=== PATIENT | female | born 1980 | race Caucasian/White ===

== ENCOUNTER 2016-07-13 04:29 | Inpatient (IN) | payer MEDICAID ==
[~2016-07-13] VITALS: Ht 165.1 cm; Wt 66.2 kg
[2016-07-13] VITALS (18 sets, daily range): BP systolic 104–131; BP diastolic 69–86; PULSE 50–88; RESP 14–20; TEMP 98.3; Ht 165.1 cm; Wt 66.2 kg
[~2016-07-13 04:29] MED LIST: CIPR500T4 PO; HYDR-762 PO; ONDA4TAB35 PO
[2016-07-13] MEDS ORDERED: morphine 4 MG/ML VIAL IV STA (06:14)
[2016-07-13] MEDS ORDERED: ONDANSETRON 4 MG INJ IV STA (06:14)
[2016-07-13] MEDS ORDERED: SOD CHLORIDE 0.9% 1,000 ML IV STA (06:14)
--- NOTE | 2016-07-13 06:36 | ERD ---
ER Documentation Chief Complaint Date/Time DATE: 07/13/16 TIME: 06:34 Chief Complaint GENERALIZED ABD PAIN SINCE LATE NIGHT WITH N/V (3X) HPI This is a 36-year-old female that presents to the ER with generalized abdominal pain that started last night. Patient has had nausea and 3 episodes of nonbilious nonbloody vomiting. Patient states that she tried Advil and tea at home however pain has gotten worse. Patient describes pain as a stabbing sensation throughout her entire abdomen, it has been constant. Nothing has made it better. Patient denies any diarrhea. She denies any fever or chills. She denies any urinary frequency or dysuria. She denies any chest pain or shortness of breath. ROS 12 point review of systems was done, all negative except per HPI. Medications Home Meds Active Scripts Ondansetron Hcl* (Zofran* ODT) 4 mg -ODT Tab.disper, 4 MG PO Q6 Y for NAUSEA AND /OR VOMITING, #10 TAB Prov:AUSTIN ANDERS. 02/15/15 Hydrocodone Bit-Acetaminophen* ([place]*) 10-325 Mg Tablet, 1 TAB PO Q6 Y for PAIN , #7 TAB Prov:AUSTIN ANDERS. 02/15/15 Ciprofloxacin Hcl* (Ciprofloxacin Hcl*) 500 Mg Tablet, 500 MG PO BID for 7 Days , TAB Prov:AUSTIN ANDERS. 02/15/15 Allergies Allergies: Coded Allergies: No Known Drug Allergy (Verified Allergy, Unknown, 02/15/15) PMhx/Soc History of Surgery: No Anesthesia Reaction: No Hx Neurological Disorder: No Hx Respiratory Disorders: No Hx Cardiac Disorders: No Hx Psychiatric Problems: Yes (ANXIETY) Hx Miscellaneous Medical Probl: No Hx Alcohol Use: No Hx Substance Use: No Hx Tobacco Use: No Smoking Status: Never smoker Physical Exam Vitals Vital Signs Date Time Temp Pulse Resp B/P Pulse Ox O2 Delivery O2 Flow Rate FiO2 07/13/16 04:33 97.6 62 18 116/76 100 Physical Exam GENERAL: The patient is well developed and appropriate for usual state of health , in no apparent distress. HEENT: Atraumatic. CHEST: Clear to auscultation bilaterally. There are no rales, wheezes or rhonchi. HEART: Regular rate and rhythm. No murmurs, clicks, rubs or gallops. ABDOMEN: Soft and nondistended, patient is tender to palpation throughout entire abdome. good bowel sounds. No rebound or guarding. No gross peritonitis. No gross organomegaly or masses. No Ritter sign or McBurney point tenderness. BACK: No midline or flank tenderness. NEURO: Alert and oriented. SKIN: The skin is warm and dry. Result Diagram: 07/13/16 0640 07/13/16 0640 Results 24 hrs Laboratory Tests Test 07/13/16 06:40 White Blood Count 10.110^3/ul Red Blood Count 3.9210^6/ul Hemoglobin 12.0g/dl Hematocrit 35.7% Mean Corpuscular Volume 91.1fl Mean Corpuscular Hemoglobin 30.6pg Mean Corpuscular Hemoglobin Concent 33.6g/dl Red Cell Distribution Width 13.3% Platelet Count 86253^3/UL Mean Platelet Volume 10.8fl Neutrophils % 81.9% Lymphocytes % 11.0% Monocytes % 6.3% Eosinophils % 0.2% Basophils % 0.2% Nucleated Red Blood Cells % 0.0/100WBC Neutrophils # 8.310^3/ul Lymphocytes # 1.110^3/ul Monocytes # 0.610^3/ul Eosinophils # 0.010^3/ul Basophils # 0.010^3/ul Nucleated Red Blood Cells # 0.010^3/ul Sodium Level 137mmol/L Potassium Level 3.9mmol/L Chloride Level 105mmol/L Carbon Dioxide Level 20mmol/L Anion Gap 16 Blood Urea Nitrogen 11mg/dl Creatinine 0.49mg/dl Glucose Level 115mg/dl Calcium Level 9.6mg/dl Total Bilirubin 0.6mg/dl Direct Bilirubin 0.00mg/dl Indirect Bilirubin 0.6mg/dl Aspartate Amino Transf (AST/SGOT) 26IU/L Alanine Aminotransferase (ALT/SGPT) 35IU/L Alkaline Phosphatase 64IU/L Total Protein 8.4g/dl Albumin 4.8g/dl Globulin 3.60g/dl Albumin/Globulin Ratio 1.33 Lipase 67U/L Current Medications Medications (Trade) Dose Ordered Sig/Cheo Route PRN Reason Start Time Stop Time Status Last Admin Dose Admin Sodium Chloride (NS) 1,000 ml @ 1,000 mls/hr Q1H STAT IV 07/13/16 06:14 07/13/16 07:13 DC 07/13/16 06:36 Morphine Sulfate (morphine) 4 mg ONCE STAT IV 07/13/16 06:14 07/13/16 06:16 DC 07/13/16 06:36 Ondansetron HCl (Zofran Inj) 4 mg ONCE STAT IV 07/13/16 06:14 07/13/16 06:16 DC 07/13/16 06:36 Departure Diagnosis: Primary Impression: Appendicitis Condition: Stable IVETTE GRUBBS July 13, 2016 06:36
[2016-07-13 07:18] LABS: ADD SCAN DIFF NO
[2016-07-13 07:30] LABS: BASOPHILS % 0.2 % (0.0-2.0); EOSINOPHILS % 0.2 % (0.0-7.0); HEMATOCRIT 35.7 % (37.0-47.0); LYMPHOCYTES # 1.1 10^3/ul (0.8-2.9); MEAN CORPUSCULAR HEMOGLOBIN 30.6 pg (29.0-33.0); MEAN CORPUSCULAR HGB CONC 33.6 g/dl (32.0-37.0); MEAN CORPUSCULAR VOLUME 91.1 fl (82.0-101.0); MEAN PLATELET VOLUME 10.8 fl (7.4-10.4); MONOCYTE # 0.6 10^3/ul (0.3-0.9); MONOCYTES % 6.3 % (0.0-11.0); NEUTROPHIL # 8.3 10^3/ul (1.6-7.5); NEUTROPHILS % 81.9 % (39.0-77.0); PLATELET COUNT 215 10^3/UL (140-415); RED BLOOD COUNT 3.92 10^6/ul (4.20-5.40); RED CELL DISTRIBUTION WIDTH 13.3 % (11.5-14.5); WHITE BLOOD COUNT 10.1 10^3/ul (4.8-10.8)
--- NOTE | 2016-07-13 07:48 | RADRPT ---
PROCEDURE: CT Abdomen and pelvis without contrast. CLINICAL INDICATION: Abdominal pain/right flank pain TECHNIQUE: CT scan of the abdomen and pelvis with contrast was performed on a multidetector high-r esolution CT scan. . Coronal and sagittal reformatted images were obtained from the axial source i mages. Standard CT scan of the abdomen pelvis without contrast protocols were performed. The total exam CTDI equals 9.31 mGy and the total exam DLP equals 503.32 mGy-cm. One or more of the following dose reduction techniques were used: - Automated exposure control. - Adjustment of the mA and/or kV according to patient size. Use of iterative reconstruction technique. COMPARISON: None FINDINGS: The kidneys are normal in size without calcified renal calculi hydronephrosis or intra masses bilate rally. Urinary bladder is contracted but otherwise unremarkable. The ureters are unremarkable. The uterus is anteverted anteflexed but otherwise unremarkable. There are no adnexal masses. The appendix is dilated with a maximal diameter of 1.1 cm with a mildly thickened wall. There is mi nimal adjacent induration but no emy fluid, abscesses or free air. This finding is consistent with early acute appendicitis. No evidence of abdominal or pelvic lymphadenopathy. The stomach, small bowel and large bowel are un remarkable. The gallbladder is unremarkable and there is no evidence of biliary ductal dilation. The liver spleen pancreas and adrenal glands are unremarkable. The aorta is unremarkable. Lung bases are unremarkable. The osseous structures are unremarkable. Lower thoracic abdominal pelvic shultz are unremarkable. IMPRESSION: 1. Dilated appendix with a maximal diameter of 1.1 cm with a mildly thickened wall and minimal lisha cent induration consistent with early acute appendicitis. No abscess or free air. 2. No evidence of urinary calcified calculi or obstructive uropathy. RPTAT:AAJJ Physician Devante Date Time Electronically viewed and signed by Physician Devante on 07/13/2016 07:48 BM/
[2016-07-13 07:50] LABS: ALBUMIN 4.8 g/dl (3.3-4.9); ALBUMIN/GLOBULIN RATIO 1.33; BILIRUBIN,INDIRECT 0.6 mg/dl (0-1.1); BILIRUBIN,TOTAL 0.6 mg/dl (0.2-1.3); CALCIUM 9.6 mg/dl (8.4-10.2); CREATININE 0.49 mg/dl (0.44-1.00); POTASSIUM 3.9 mmol/L (3.5-5.1); TOTAL PROTEIN 8.4 g/dl (6.1-8.1)
[2016-07-13] MEDS ORDERED: D5W-0.45 NACL + KCL 20 MEQ 1,000 ML IV STA (08:27)
[2016-07-13] MEDS ORDERED: PIPER-TAZO 3.375 GM IV (PMX) 100 ML IVPB STA (08:27)
--- NOTE | 2016-07-13 08:27 | ERA ---
ER Documentation Chief Complaint Date/Time DATE: 07/13/16 TIME: 08:19 Chief Complaint GENERALIZED ABD PAIN SINCE LATE NIGHT WITH N/V (3X) HPI 36-year-old female with no significant previous medical history ambulatory to the ED complaining of acute onset of generalized, crampy, moderate to severe, generalized abdominal pain which is localized to the right lower quadrant. Nausea with 3 episodes of nonbloody, nonbilious emesis but no diarrhea or constipation. Denies dysuria, polyuria, hematuria or flank pain. No vaginal discharge or bleeding. Denies chest pain or palpitations. No shortness of breath or cough. No URI symptoms or body aches. No relieving or exacerbating factors. No fevers or chills. ROS All systems reviewed and are negative except as per history of present illness. Medications Home Meds Discontinued Scripts Ondansetron Hcl* (Zofran* ODT) 4 mg -ODT Tab.disper, 4 MG PO Q6 Y for NAUSEA AND /OR VOMITING, #10 TAB Prov:AUSTIN ANDERS. 02/15/15 Hydrocodone Bit-Acetaminophen* ([place]*) 10-325 Mg Tablet, 1 TAB PO Q6 Y for PAIN , #7 TAB Prov:AUSTIN ANDERS. 02/15/15 Ciprofloxacin Hcl* (Ciprofloxacin Hcl*) 500 Mg Tablet, 500 MG PO BID for 7 Days , TAB Prov:AUSTIN ANDERS. 02/15/15 Allergies Allergies: Coded Allergies: No Known Drug Allergy (Verified Allergy, Unknown, 07/13/16) PMhx/Soc Reviewed in chart. As per HPI. History of Surgery: Yes (Tubal ligation) Anesthesia Reaction: No Hx Neurological Disorder: No Hx Respiratory Disorders: No Hx Cardiac Disorders: No Hx Psychiatric Problems: Yes (ANXIETY) Hx Miscellaneous Medical Probl: No Hx Alcohol Use: No Hx Substance Use: No Hx Tobacco Use: No Smoking Status: Never smoker FmHx Sister: Heart disease. No family history of cancer or stroke Physical Exam Vitals Vital Signs Date Time Temp Pulse Resp B/P Pulse Ox O2 Delivery O2 Flow Rate FiO2 07/13/16 04:33 97.6 62 18 116/76 100 Physical Exam Const: Alert, moderate distress due to pain. Head: Atraumatic Eyes: Normal Conjunctiva ENT: Normal External Ears, Nose and Mouth. Neck: Full range of motion. Nontender. Resp: Clear to auscultation bilaterally Cardio: Regular rate and rhythm, no murmurs Abd: Soft, nondistended. Right lower quadrant tenderness but no rebound or guarding. Normal bowel sounds. Skin: No petechiae or rashes Back: No midline or flank tenderness Ext: No cyanosis, or edema Neur: Awake and alert. No focal deficit. Psych: Normal Mood and Affect Result Diagram: 07/13/16 0640 07/13/16 0640 Results 24 hrs Laboratory Tests Test 07/13/16 06:40 White Blood Count 10.110^3/ul Red Blood Count 3.9210^6/ul Hemoglobin 12.0g/dl Hematocrit 35.7% Mean Corpuscular Volume 91.1fl Mean Corpuscular Hemoglobin 30.6pg Mean Corpuscular Hemoglobin Concent 33.6g/dl Red Cell Distribution Width 13.3% Platelet Count 78254^3/UL Mean Platelet Volume 10.8fl Neutrophils % 81.9% Lymphocytes % 11.0% Monocytes % 6.3% Eosinophils % 0.2% Basophils % 0.2% Nucleated Red Blood Cells % 0.0/100WBC Neutrophils # 8.310^3/ul Lymphocytes # 1.110^3/ul Monocytes # 0.610^3/ul Eosinophils # 0.010^3/ul Basophils # 0.010^3/ul Nucleated Red Blood Cells # 0.010^3/ul Sodium Level 137mmol/L Potassium Level 3.9mmol/L Chloride Level 105mmol/L Carbon Dioxide Level 20mmol/L Anion Gap 16 Blood Urea Nitrogen 11mg/dl Creatinine 0.49mg/dl Glucose Level 115mg/dl Calcium Level 9.6mg/dl Total Bilirubin 0.6mg/dl Direct Bilirubin 0.00mg/dl Indirect Bilirubin 0.6mg/dl Aspartate Amino Transf (AST/SGOT) 26IU/L Alanine Aminotransferase (ALT/SGPT) 35IU/L Alkaline Phosphatase 64IU/L Total Protein 8.4g/dl Albumin 4.8g/dl Globulin 3.60g/dl Albumin/Globulin Ratio 1.33 Lipase 67U/L Serum HCG, Qualitative NEGATIVE Current Medications Medications (Trade) Dose Ordered Sig/Cheo Route PRN Reason Start Time Stop Time Status Last Admin Dose Admin Sodium Chloride (NS) 1,000 ml @ 1,000 mls/hr Q1H STAT IV 07/13/16 06:14 07/13/16 07:13 DC 07/13/16 06:36 Morphine Sulfate (morphine) 4 mg ONCE STAT IV 07/13/16 06:14 07/13/16 06:16 DC 07/13/16 06:36 Ondansetron HCl 4 mg 4 mg ONCE STAT IV 07/13/16 06:14 07/13/16 06:16 DC 07/13/16 06:36 Potassium Chloride/Dextrose/ Sod Cl 1,000 ml @ 125 mls/hr Q8H STAT IV 07/13/16 08:27 07/13/16 16:26 DC 07/13/16 08:53 Piperacillin Sod/ Tazobactam Sod (Zosyn 3.375gm/ 100 ml (Pmx)) 100 ml @ 200 mls/hr ONCE STAT IVPB 07/13/16 08:27 07/13/16 19:47 DC 07/13/16 08:43 PROCEDURE: CT Abdomen and pelvis without contrast. CLINICAL INDICATION: Abdominal pain/right flank pain TECHNIQUE: CT scan of the abdomen and pelvis with contrast was performed on a multidetector high-resolution CT scan. . Coronal and sagittal reformatted images were obtained from the axial source images. Standard CT scan of the abdomen pelvis without contrast protocols were performed. The total exam CTDI equals 9.31 mGy and the total exam DLP equals 503.32 mGy- cm. One or more of the following dose reduction techniques were used: - Automated exposure control. - Adjustment of the mA and/or kV according to patient size. Use of iterative reconstruction technique. COMPARISON: None FINDINGS: The kidneys are normal in size without calcified renal calculi hydronephrosis or intra masses bilaterally. Urinary bladder is contracted but otherwise unremarkable. The ureters are unremarkable. The uterus is anteverted anteflexed but otherwise unremarkable. There are no adnexal masses. The appendix is dilated with a maximal diameter of 1.1 cm with a mildly thickened wall. There is minimal adjacent induration but no emy fluid, abscesses or free air. This finding is consistent with early acute appendicitis. No evidence of abdominal or pelvic lymphadenopathy. The stomach, small bowel and large bowel are unremarkable. The gallbladder is unremarkable and there is no evidence of biliary ductal dilation. The liver spleen pancreas and adrenal glands are unremarkable. The aorta is unremarkable. Lung bases are unremarkable. The osseous structures are unremarkable. Lower thoracic abdominal pelvic shultz are unremarkable. IMPRESSION: 1. Dilated appendix with a maximal diameter of 1.1 cm with a mildly thickened wall and minimal adjacent induration consistent with early acute appendicitis. No abscess or free air. 2. No evidence of urinary calcified calculi or obstructive uropathy. RPTAT:AAJJ Physician Devante Date Time Electronically viewed and signed by Physician Devante on 07/13/2016 07:48 BM/ Procedures/MDM DOCUMENTS REVIEWED: ED nurse, prior ED MEDICAL DECISION MAKIN-year-old female with no significant previous medical history ambulatory to the ED complaining of acute onset of generalized, crampy, moderate to severe, generalized abdominal pain which is localized to the right lower quadrant. Not . Exam and CT scan consistent with acute early appendicitis without perforation. Zosyn given. Patient will be admitted for urgent surgical consultation, further evaluation and management. Counseled patient regarding diagnosis, diagnostic results and plan for admission. CALLS/CONSULTS: Time: 08:25, ana lilia Wakefield consult. CALLS/CONSULTS: Time: 08:25, Dr Avalos PATIENT CARE TRANSITIONED: Time: 08:45, Dr. Avalos. Departure Diagnosis: Primary Impression: Acute appendicitis Qualified Code: K35.80 - Acute appendicitis, unspecified acute appendicitis type Condition: Serious TIMO IZAGUIRRE MD July 13, 2016 08:27
[2016-07-13] MEDS ORDERED: ONDANSETRON 4 MG INJ IV PRN ×4 (09:00→20:00)
[2016-07-13] MEDS ORDERED: morphine 2 MG INJ IV PRN (09:30)
[2016-07-13] MEDS ORDERED: NACL 0.9% 3 ML SYG IV SCH (09:30)
[2016-07-13] MEDS ORDERED: ACETAMINOPHEN 325 MG TAB PO PRN (09:30)
[2016-07-13] MEDS ORDERED: HYDROCODONE/APAP (5/325) TAB PO PRN (09:30)
--- NOTE | 2016-07-13 09:42 | CONS ---
Date/Time of Note Date/Time of Note DATE: 07/13/16 TIME: 09:42 Assessment/Plan Assessment/Plan Chief Complaint/Hosp Course 36-year-old female with acute appendicitis. This has been confirmed via CT scan. * Continue nothing by mouth * Broad-spectrum intravenous antibiotics * IV fluid hydration * Pain control Definitive treatment will consist of laparoscopic appendectomy; possible open. This has been explained to the patient along with all risks and benefits of the procedure. She fully understands and is agreeable to the treatment plan as outlined. Informed consent will be obtained and the patient will be scheduled for laparoscopic appendectomy; possible open Problems: Consultation Date/Type/Reason Admit Date/Time Date of Consultation: July 13, 2016 Type of Consultation: GENERAL SURGERY Reason for Consultation Acute appendicitis Hx of Present Illness The patient is an otherwise healthy 36-year-old female who presented to the emergency room complaining of a one-day history of abdominal pain. She describes the pain as being located in the periumbilical area and as well as the right lower quadrant. She reports 3 episodes of nonbilious emesis. She denies any fever but reports subjective chills. She denies any diarrhea or constipation. She states she had a similar episode of pain approximately 1 month ago that resolved on its own. On arrival to the emergency room CT scan of the abdomen and pelvis which was done showed a dilated and thickened appendix consistent with acute appendicitis. She is currently complaining of right lower quadrant abdominal pain. A 14 point review of systems was conducted and was negative except for that which is mentioned in HPI Past Medical History Medical History: no pertinent history Past Surgical History Past Surgical Hx: other (Tubal ligation) Family History Significant Family History: no pertinent family hx Social History Smoking Status: Never smoker Exam/Review of Systems Vital Signs Vitals Vital Signs Date Time Temp Pulse Resp B/P Pulse Ox O2 Delivery O2 Flow Rate FiO2 07/13/16 04:33 97.6 62 18 116/76 100 Exam GENERAL: Awake, alert, oriented x 3. No acute distress. SKIN: No jaundice. HEENT: PERRLA, EOMI, No Scleral Icterus NECK: Supple without JVD CARDIOVASCULAR: S1S2, regular rate and rhythm. No murmurs appreciated. RESPIRATORY: Clear to auscultation bilaterally. ABDOMEN: Soft, bowel sounds present, nondistended, right lower quadrant tenderness to palpation with localized rebound and positive Rovsing sign. There is a reducible umbilical hernia palpated. EXTREMITIES: Free range of motion x 4. No cyanosis, edema, or clubbing. NEUROLOGIC: Cranial nerves II-XII are intact. Sensation is intact grossly. Results Result Diagram: 07/13/16 0640 07/13/16 0640 Results 24 hrs Laboratory Tests Test 07/13/16 06:40 White Blood Count 10.1 Red Blood Count 3.92 L Hemoglobin 12.0 Hematocrit 35.7 L Mean Corpuscular Volume 91.1 Mean Corpuscular Hemoglobin 30.6 Mean Corpuscular Hemoglobin Concent 33.6 Red Cell Distribution Width 13.3 Platelet Count 215 Mean Platelet Volume 10.8 #H Neutrophils % 81.9 H Lymphocytes % 11.0 L Monocytes % 6.3 Eosinophils % 0.2 Basophils % 0.2 Nucleated Red Blood Cells % 0.0 Neutrophils # 8.3 H Lymphocytes # 1.1 Monocytes # 0.6 Eosinophils # 0.0 Basophils # 0.0 Nucleated Red Blood Cells # 0.0 Sodium Level 137 Potassium Level 3.9 Chloride Level 105 Carbon Dioxide Level 20 L Anion Gap 16 Blood Urea Nitrogen 11 Creatinine 0.49 Glucose Level 115 Calcium Level 9.6 Total Bilirubin 0.6 Direct Bilirubin 0.00 Indirect Bilirubin 0.6 Aspartate Amino Transf (AST/SGOT) 26 Alanine Aminotransferase (ALT/SGPT) 35 Alkaline Phosphatase 64 Total Protein 8.4 H Albumin 4.8 Globulin 3.60 H Albumin/Globulin Ratio 1.33 Lipase 67 Medications Medications Current Medications Ondansetron HCl (Zofran Inj) 4 mg Q6H PRN IV NAUSEA AND/OR VOMITING; Start 07/13 at 09:30; Status UNV Acetaminophen (Tylenol Tab) 650 mg Q6H PRN PO PAIN LEVEL 1-3 OR FEVER; Start at 09:30; Status UNV Acetaminophen/ Hydrocodone Bitart ([place] (5/325)) 1 tab Q6H PRN PO MODERATE PAIN LEVEL 4-6; Start 07/13/16 at 09:30; Status UNV Morphine Sulfate 2 mg 2 mg Q4H PRN IV SEVERE PAIN LEVEL 7-10; Start 07/13/16 at 09:30; Status UNV Dextrose/Sodium Chloride 1,000 ml @ 125 mls/hr Q8H IV ; Start 07/13/16 at 10:00 ; Status UNV Piperacillin Sod/ Tazobactam Sod (Zosyn 3.375gm/ 100 ml (Pmx)) 100 ml @ 200 mls /hr Q8 IVPB ; Start 07/13/16 at 14:00; Status UNV Procedures Procedures PROCEDURE: CT Abdomen and pelvis without contrast. CLINICAL INDICATION: Abdominal pain/right flank pain TECHNIQUE: CT scan of the abdomen and pelvis with contrast was performed on a multidetector high-resolution CT scan. . Coronal and sagittal reformatted images were obtained from the axial source images. Standard CT scan of the abdomen pelvis without contrast protocols were performed. The total exam CTDI equals 9.31 mGy and the total exam DLP equals 503.32 mGy- cm. One or more of the following dose reduction techniques were used: - Automated exposure control. - Adjustment of the mA and/or kV according to patient size. Use of iterative reconstruction technique. COMPARISON: None FINDINGS: The kidneys are normal in size without calcified renal calculi hydronephrosis or intra masses bilaterally. Urinary bladder is contracted but otherwise unremarkable. The ureters are unremarkable. The uterus is anteverted anteflexed but otherwise unremarkable. There are no adnexal masses. The appendix is dilated with a maximal diameter of 1.1 cm with a mildly thickened wall. There is minimal adjacent induration but no emy fluid, abscesses or free air. This finding is consistent with early acute appendicitis. No evidence of abdominal or pelvic lymphadenopathy. The stomach, small bowel and large bowel are unremarkable. The gallbladder is unremarkable and there is no evidence of biliary ductal dilation. The liver spleen pancreas and adrenal glands are unremarkable. The aorta is unremarkable. Lung bases are unremarkable. The osseous structures are unremarkable. Lower thoracic abdominal pelvic shultz are unremarkable. IMPRESSION: 1. Dilated appendix with a maximal diameter of 1.1 cm with a mildly thickened wall and minimal adjacent induration consistent with early acute appendicitis. No abscess or free air. 2. No evidence of urinary calcified calculi or obstructive uropathy. RPTAT:AAJJ Physician Devante Date Time Electronically viewed and signed by Physician Devante on 07/13/2016 07:48 BM/ CC: IVETTE GRUBBS MICHAEL A. MD July 13, 2016 09:42
--- NOTE | 2016-07-13 09:44 | HP ---
Date/Time of Note Date/Time of Note DATE: 07/13/16 TIME: 09:40 Assessment/Plan VTE Prophylaxis VTE Prophylaxis Intervention: SCD's Assessment/Plan Assessment/Plan 1. Acute abdominal pain. CT evidence of acute appendicitis. The patient will be kept n.p.o. The patient was started on IV fluids. She will be provided with adequate pain control. The patient was started on empiric antibiotics. A general surgery consult was already called by the ER physician. Will await general surgery evaluation. 2. Umbilical hernia. Reducible. CT showing no evidence of any bowel obstruction. Plan: The patient will be admitted to inpatient medical surgical floor. The patient will be kept n.p.o. except for medications. The patient will be started on DVT prophylaxis and gastrointestinal prophylaxis. The patient will remain a full code. Activities will be as tolerated. The rest of the patient's management will be based on the clinical course and the results of diagnostic studies. Based on the patient's clinical presentation, she most probably requires at least 1 midnight's stay for further management and evaluation of her clinical presentation. The case and management of this patient was fully discussed with Dr. Robbie ARGUETA/ROCÍO Admit Date/Time Admit Date/Time Hx of Present Illness Reason for admission: Abdominal pain. Consultants 1. Martinez Martínez MD, General Surgery. This is a 36-year-old female with no significant past medical history who came to the emergency room with chief complaint of acute onset of abdominal pain that was described as crampy and moderate to severe which was localized to the right lower quadrant. The patient also complained of 3 episodes of nonbloody, nonbilious vomitus. The patient denied any diarrhea or constipation. She denied any dysuria, polyuria, hematuria, or flank pain. Patient denied any chest pain or palpitations. She denied any dyspnea or cough. The patient denied any fevers. However the patient was complaining of chills. The patient tried [id number] Advil with minimal improvement in symptoms. In the emergency room, the patient underwent a CT scan of the abdomen and pelvis that showed evidence of acute appendicitis. The patient had no leukocytosis. Patient remained afebrile. The patient was treated with IV analgesics IV fluids and single dose of IV Zosyn. ROCÍO Constitutional: chills Eyes: no complaints ENT: no complaints Respiratory: no complaints Cardiovascular: no complaints Gastrointestinal: nausea, pain, vomiting Genitourinary: no complaints Skin: no complaints Neurologic: no complaints Endocrine: no complaints Lymphatic: no complaints Psychological: no complaints Immunologic: no complaints PMH/Family/Social Past Medical History Medical History: no pertinent history Past Surgical History Past Surgical Hx: other (Tubal ligation) Social History Currently works as a locomotive engineer electric. Alcohol Use: none Smoking Status: Never smoker Drug Use: none Exam/Review of Systems Vital Signs Vitals Vital Signs Date Time Temp Pulse Resp B/P Pulse Ox O2 Delivery O2 Flow Rate FiO2 07/13/16 04:33 97.6 62 18 116/76 100 Exam Exam General: Adequately build 36 year-old female lying in bed in no apparent distress. HEENT: Normocephalic, atraumatic. Eyes: Anicteric sclerae, conjunctivae clear. ENT: Nasal septum midline, oral mucosa moist. Neck supple, no JVD noticed. Respiratory: Bilaterally clear breath sounds. No use of accessory muscles of respiration. No adventitious breath sounds. Cardiovascular: S1, S2 heard. No murmurs or gallops. Abdomen: Soft and nondistended. Bowel sounds positive in all 4 quadrants. Umbilical hernia that is reducible. Diffuse tenderness with severe tenderness in the right lower quadrant. Genitourinary: Deferred. Extremities: No cyanosis, no clubbing, no edema. Peripheral pulses palpable. Neurologic: Cranial nerves II through XII grossly intact. The patient is awake, alert, and oriented. Skin: Normal skin turgor. No skin rashes. Labs Result Diagram: 07/13/16 0640 07/13/16 0640 Medications Medications Current Medications Ondansetron HCl (Zofran Inj) 4 mg Q6H PRN IV NAUSEA AND/OR VOMITING; Start 07/13 at 09:30; Status UNV Acetaminophen (Tylenol Tab) 650 mg Q6H PRN PO PAIN LEVEL 1-3 OR FEVER; Start at 09:30; Status UNV Acetaminophen/ Hydrocodone Bitart ([place] (5/325)) 1 tab Q6H PRN PO MODERATE PAIN LEVEL 4-6; Start 07/13/16 at 09:30; Status UNV Morphine Sulfate (morphine) 2 mg Q4H PRN IV SEVERE PAIN LEVEL 7-10; Start at 09:30; Status UNV Procedures Procedures CT Abdomen and Pelvis IMPRESSION: 1. Dilated appendix with a maximal diameter of 1.1 cm with a mildly thickened wall and minimal adjacent induration consistent with early acute appendicitis. No abscess or free air. 2. No evidence of urinary calcified calculi or obstructive uropathy. PETRA OREILLY NP July 13, 2016 09:44
[2016-07-13] MEDS: DEXTROSE 5%-0.45% NACL 1,000 ML IV SCH ×4 (10:00→21:29)
[2016-07-13 11:54] LABS: ADD UMIC YES; URINE BILIRUBIN (Dip) NEGATIVE (NEGATIVE); URINE BLOOD (Dip) NEGATIVE (NEGATIVE); URINE COLOR LT. YELLOW (YELLOW); URINE GLUCOSE (Dip) NEGATIVE (NEGATIVE); URINE KETONES (Dip) 15 (NEGATIVE); URINE LEUKOCYTE ESTERASE (Dip) NEGATIVE (NEGATIVE); URINE NITRITE (Dip) NEGATIVE (NEGATIVE); URINE TOTAL PROTEIN (Dip) 2+ (NEGATIVE); URINE UROBILINOGEN (Dip) 0.2 E.U./dL (0.1-1.0)
[2016-07-13 13:02] LABS: BACTERIA,URINE FEW; URINE RBCS NONE SEEN /HPF (0)
[2016-07-13] MEDS ORDERED: PIPER-TAZO 3.375 GM IV (PMX) 100 ML IVPB SCH (14:00)
[2016-07-13] MEDS ORDERED: BUPIVACAINE 0.25%/EPI (SDV) 30 ML INJ ONE (18:09)
[2016-07-13] MEDS ORDERED: MIDAZOLAM 1 MG/ML 2 ML INJ ONE (18:40)
[2016-07-13] MEDS ORDERED: FENTAnyl 50 MCG/ML VIAL ONE (18:40)
[2016-07-13] MEDS ORDERED: LIDOCAINE 2% (SDV) 5 ML INJ ONE (19:28)
[2016-07-13] MEDS ORDERED: GLYCOPYRROLATE 0.4 MG INJ ONE (19:28)
[2016-07-13] MEDS ORDERED: NEOSTIGMINE 3 MG/3 ML SYRINGE ONE (19:28)
[2016-07-13] MEDS ORDERED: ROCURONIUM 50 MG INJ ONE (19:28)
[2016-07-13] MEDS ORDERED: CEFAZOLIN 1 GM INJ ONE (19:28)
[2016-07-13] MEDS ORDERED: PROPOFOL 20 ML ONE (19:28)
--- NOTE | 2016-07-13 19:56 | OPR ---
Date/Time of Note Date/Time of Note DATE: 07/13/16 TIME: 19:48 Operative Report Procedure Date: July 13, 2016 Preoperative Diagnosis 1. Acute appendicitis with localized peritonitis 2. Umbilical hernia without obstruction or gangrene Postoperative Diagnosis 1. Acute appendicitis with localized peritonitis 2. Umbilical hernia without obstruction or gangrene Operation Performed 1. Laparoscopic appendectomy 2. Umbilical hernia repair Surgeon: BEBETO CORTEZ MD Anesthesia: general Anesthesiologist: ADRYAN BRANTLEY MD Estimated Blood Loss: minimal Specimens 1. Appendix 2. Umbilical hernia sac and contents Complications: None Pt Condition Post Procedure: stable Disposition: PACU Indications Patient is a 36-year-old female who presented to the emergency room complaining of a 1 day history of right lower quadrant abdominal pain. The patient had clinical signs and symptoms of acute appendicitis which was confirmed via CT scan. She was therefore admitted, kept nothing by mouth, started on broad-spectrum intravenous antibiotics and scheduled for laparoscopic appendectomy; possible open as definitive treatment. All risks and benefits of the procedure including but not limited to: Wound infection, excessive bleeding, injury to intra-abdominal organs, conversion to open procedure etc. were explained to the patient in full detail. The patient also had a reducible umbilical hernia which was the location of our proposed trocar sites. Therefore, decision was made to also repair the umbilical hernia. All risks and benefits of hernia repair including, but not limited to: Hernia recurrence, postoperative seroma/hematoma, chronic pain etc. were also explained to the patient. The patient fully understood and wished to proceed with the procedure. Informed consent was therefore obtained. Operative\Procedure Findings Fat-containing umbilical hernia. Acute appendicitis without perforation. Procedure Description The patient was brought to the operating room and placed supine on the operating table. Bilateral sequential compression devices were placed on both lower extremities. The patient had been maintained on broad-spectrum intravenous antibiotics while an inpatient on the floor. After the induction of smooth general endotracheal anesthesia the patient's abdomen was prepped and draped in the standard surgical fashion. A semicircular incision was made superior to the umbilicus and carried down through the skin and subcutaneous tissues to the level of the anterior rectus fascia. The umbilicus was encircled using a Estelle clamp and transected at its base. Fat-containing umbilical hernia was identified. The sac was dissected off of the umbilicus and transected along with the fat contained within it. It was passed off the field as specimen. The fascial defect was approximately 1 cm. A 12 mm trocar was then inserted through this hernia defect. Pneumoperitoneum was then obtained and a 5 mm laparoscope was placed through the trocar. Two further working ports were then placed, a 5 mm port in the midline suprapubic area and another 5 mm port midway between the suprapubic and umbilical port sites. All port sites were anesthetized with 0.25% Marcaine with epinephrine prior to incision. Attention was then turned towards the right lower quadrant. Using atraumatic graspers, the appendix was grasped and retracted superiorly and medially exposing the mesoappendix. The appendix appeared erythematous and inflamed consistent with acute appendicitis, but not perforated. Using the harmonic scalpel the mesoappendix was taken down to the level of the appendiceal base. The appendix was then transected at its base using a firing of the laparoscopic AMBER stapler. Once completely free the appendix was placed in an Endo Catch bag and withdrawn through the umbilical port site and passed off the field as specimen. Hemostasis was then inspected for and noted to be total. Pneumoperitoneum was then released and all trochars were withdrawn under direct vision. The umbilical hernia defect was repaired using a 0 Vicryl suture in a [id number] fashion. The umbilicus was tacked back down to the fascia using an interrupted 3-0 Vicryl suture. The subcutaneous tissues were irrigated with warm normal saline and further local anesthesia was applied around the skin of the incision sites. The skin was then reapproximated using 4-0 Monocryl sutures in subcuticular fashion. The incisions were cleaned and Dermabond was applied and the patient was awoken from anesthesia and transported to the recovery room in stable condition. All counts were correct at the end of the case x 2. BEBETO CORTEZ MD July 13, 2016 19:56
[2016-07-13] MEDS ORDERED: MEPERIDINE 25 MG INJ IV PRN (20:00)
[2016-07-13] MEDS ORDERED: DIPHENHYDRAMINE 50 MG INJ IV PRN (20:00)
[2016-07-13] MEDS ORDERED: HYDROmorphONE 1 MG/ML SYG IV PRN (20:00)
[2016-07-13] MEDS ORDERED: KETOROLAC 30 MG INJ IV PRN (20:00)
[2016-07-13] MEDS ORDERED: morphine (1 MG/ML) 10ML SYRINGE IV PRN ×2 (20:00)
[2016-07-13] MEDS: FENTAnyl 50 MCG/ML VIAL IV PRN ×2 (20:07→20:24)
[2016-07-13] MEDS: DOCUSATE SODIUM 100 MG CAP PO SCH (21:29)
[2016-07-14] MEDS: DEXTROSE 5%-0.45% NACL 1,000 ML IV SCH ×4 (01:13→18:00)
[2016-07-14 06:42] LABS: ADD SCAN DIFF NO
[2016-07-14 06:45] LABS: BASOPHILS % 0.1 % (0.0-2.0); EOSINOPHILS % 0.2 % (0.0-7.0); HEMOGLOBIN 9.5 g/dl (12.0-16.0); LYMPHOCYTES # 1.3 10^3/ul (0.8-2.9); LYMPHOCYTES % 14.7 % (15.0-51.0); MEAN CORPUSCULAR HEMOGLOBIN 30.4 pg (29.0-33.0); MEAN CORPUSCULAR HGB CONC 32.8 g/dl (32.0-37.0); MEAN CORPUSCULAR VOLUME 92.7 fl (82.0-101.0); MEAN PLATELET VOLUME 10.4 fl (7.4-10.4); MONOCYTE # 0.6 10^3/ul (0.3-0.9); MONOCYTES % 7.4 % (0.0-11.0); NEUTROPHIL # 6.6 10^3/ul (1.6-7.5); NEUTROPHILS % 77.1 % (39.0-77.0); PLATELET COUNT 184 10^3/UL (140-415); RED BLOOD COUNT 3.13 10^6/ul (4.20-5.40); RED CELL DISTRIBUTION WIDTH 13.9 % (11.5-14.5); WHITE BLOOD COUNT 8.5 10^3/ul (4.8-10.8)
[2016-07-14 07:05] LABS: CHOL/HDL RATIO 2.6 RATIO; MAGNESIUM 1.7 mg/dl (1.7-2.5); PHOSPHORUS 2.7 mg/dl (2.5-4.9)
[2016-07-14 07:14] LABS: ALBUMIN 3.1 g/dl (3.3-4.9); ALBUMIN/GLOBULIN RATIO 1.19; BILIRUBIN,INDIRECT 0.4 mg/dl (0-1.1); BILIRUBIN,TOTAL 0.4 mg/dl (0.2-1.3); CALCIUM 8.2 mg/dl (8.4-10.2); CREATININE 0.44 mg/dl (0.44-1.00); POTASSIUM 3.6 mmol/L (3.5-5.1); TOTAL PROTEIN 5.7 g/dl (6.1-8.1)
[2016-07-14 07:23] VITALS: BP 100/65; RESP 18
[2016-07-14 07:36] LABS: THYROID STIMULATING HORMONE 3.98 MIU/L (0.465-4.680)
[2016-07-14] MEDS: DOCUSATE SODIUM 100 MG CAP PO SCH (09:09)
[2016-07-14] MEDS: ACETAMINOPHEN 325 MG TAB PO PRN ×2 (09:10→18:33)
--- NOTE | 2016-07-14 11:06 | PDOCDIS ---
Discharge Instructions DIAGNOSIS Discharge Diagnosis: Acute appendicitis. Status post laparoscopic appendectomy CONDITION Patient Condition: Stable HOME CARE INSTRUCTIONS: Diet Instructions: RegularSpecial Diet: REGULAR DIET FOLLOW UP/APPOINTMENTS Appointments Martinez Martínez MD Specialty: General Surgery Office Address: [address] [place] [id number] Office OTHER ORDERS: Other Orders: 1. Regular diet as tolerated. 2. Keep incisions clean and dry. May shower. Avoid tub baths and swimming for 2 weeks. Use mild soap and pat dry the incisions. 3. Take medications as needed for pain. 4. Call the surgeon or go to the nearest ER if you have severe abdominal pain despite pain medications. 5. Call the surgeon or go to the nearest ER if you notice any bleeding or secretions coming out of the incision sites. Also call the surgeon if you notice any blood in stool, if you have persistent fevers, or any other unusual signs or symptoms. 6. Follow-up with the surgeon (Dr. Martínez) in 7 days for incision check. 7. Avoid heavy lifting [more than 25 pounds] for 8 weeks. PETRA OREILLY NP July 14, 2016 11:06
[2016-07-14] MEDS ORDERED: HYDR-906 PO (11:10)
[2016-07-14] MEDS ORDERED: CIPR500T4 PO (11:10)
[2016-07-14] MEDS ORDERED: DOCU-216 PO (11:10)
--- NOTE | 2016-07-14 11:10 | PN ---
Date/Time of Note Date/Time of Note DATE: 07/14/16 TIME: 11:08 Assessment/Plan Lines/Catheters IV Catheter Type (from Nrs): Peripheral IV Assessment/Plan Assessment/Plan 36-year-old female status post laparoscopic appendectomy postop day #1 * Regular diet * Hep-Lock IV fluids * Out of bed/incentive spirometry * Surgically stable to discharge home once medically cleared * Follow-up in office in 1 week Subjective 24 Hr Interval Summary Complains of incisional pain. No nausea. Afebrile. Exam/Review of Systems Vital Signs Vitals Vital Signs Date Time Temp Pulse Resp B/P Pulse Ox O2 Delivery O2 Flow Rate FiO2 07/14/16 07:23 98.1 60 18 100/65 98 07/13/16 21:07 Nasal Cannula 2.0 Intake and Output 07/13/16 07/13/16 07/14/16 15:00 23:00 07:00 Intake Total 1000 ml 1000 ml Output Total 5 ml Balance 995 ml 1000 ml Exam Free Text/Dictation GENERAL: Awake, alert, oriented x 3. No acute distress. CARDIOVASCULAR: S1S2, regular rate and rhythm. No murmurs appreciated. RESPIRATORY: Clear to auscultation bilaterally. ABDOMEN: Soft, bowel sounds present, nondistended, there is appropriate incisional tenderness to palpation. INCISIONS: Clean, dry, intact EXTREMITIES: Free range of motion x 4. No cyanosis, edema, or clubbing. Results Result Diagram: 07/14/16 0558 07/14/16 0558 BEBETO CORTEZ MD July 14, 2016 11:10
--- NOTE | 2016-07-14 17:23 | DS ---
Date/Time of Note Date/Time of Note DATE: 07/14/16 TIME: 17:23 Discharge Summary Admission/Discharge Info Admit Date/Time July 13, 2016 at 08:43 Discharge Date/Time Final Diagnosis 1. Acute appendicitis with localized peritonitis. Status post laparoscopic appendectomy. 2. Umbilical hernia. Status post repair. Patient Condition: Good Consults 1. Martinez Martínez MD, General Surgery. Procedures CT ABDOMEN PELVIS IMPRESSION: 1. Dilated appendix with a maximal diameter of 1.1 cm with a mildly thickened wall and minimal adjacent induration consistent with early acute appendicitis. No abscess or free air. 2. No evidence of urinary calcified calculi or obstructive uropathy. Operations Performed 1. Laparoscopic appendectomy 2. Umbilical hernia repair Hx of Present Illness Reason for admission: Abdominal pain. Consultants 1. Martinez Martínez MD, General Surgery. This is a 36-year-old female with no significant past medical history who came to the emergency room with chief complaint of acute onset of abdominal pain that was described as crampy and moderate to severe which was localized to the right lower quadrant. The patient also complained of 3 episodes of nonbloody nonbilious vomitus. The patient denied any diarrhea or constipation. She denied any dysuria, polyuria, hematuria, or flank pain. Patient denied any chest pain or palpitations. She denied any dyspnea or cough. The patient denied any fevers. However the patient was complaining of chills. The patient tried vlal-kzz-inpaekk Advil with minimal improvement in symptoms. In the emergency room, the patient underwent a CT scan of the abdomen and pelvis that showed evidence of acute appendicitis. The patient had no leukocytosis. Patient remained afebrile. The patient was treated with IV analgesics IV fluids and single dose of IV Zosyn. Hospital Course The patient was admitted to inpatient medical surgical floor. The patient was evaluated by general surgery and the patient underwent a laparoscopic appendectomy and umbilical hernia repair on 07/13/2016 with no immediate postoperative complications. Postoperatively, the patient was transferred back to the medical surgical floor. The patient was started on a clear liquid diet and the patient's diet was advanced as tolerated to a regular consistency diet with no evidence of any significant gastrointestinal symptoms. The patient was encouraged on early ambulation and frequent use of incentive spirometry. The patient started having bowel function and the patient was cleared by general surgery to be discharged home. The patient's pain was well-controlled with analgesics. DISCHARGE INSTRUCTIONS 1. Regular diet as tolerated. 2. Keep incisions clean and dry. May shower. Avoid tub baths and swimming for 2 weeks. Use mild soap and pat dry the incisions. 3. Take medications as needed for pain. 4. Call the surgeon or go to the nearest ER if you have severe abdominal pain despite pain medications. 5. Call the surgeon or go to the nearest ER if you notice any bleeding or secretions coming out of the incision sites. Also call the surgeon if you notice any blood in stool, if you have persistent fevers, or any other unusual signs or symptoms. 6. Follow-up with the surgeon (Dr. Martínez) in 7 days for incision check. 7. Avoid heavy lifting [more than 25 pounds] for 8 weeks. The patient verbalized understanding of her discharge instructions. At this time I would like to thank Dr. Martínez for seeing the patient, doing the necessary procedures, and providing clinical recommendations. The case and management of this patient was discussed with Dr. Avalos. Approximately 35 minutes was spent on coordinating the discharge on this patient. Home Meds Active Scripts Docusate Sodium (Dok) 100 Mg Capsule, 100 MG PO BID for 10 Days, CAP Prov:PETRA OREILLY NP 07/14/16 Ciprofloxacin Hcl* (Ciprofloxacin Hcl*) 500 Mg Tablet, 500 MG PO BID for 7 Days , #14 TAB Prov:PETRA OREILLY NP 07/14/16 Hydrocodone/Acetaminophen ([place] 5-325 Tablet) 1 Each Tablet, 1 EACH PO Q6H Y for PAIN, #20 TAB Prov:PETRA OREILLY NP 07/14/16 Discontinued Scripts Ondansetron Hcl* (Zofran* ODT) 4 mg -ODT Tab.disper, 4 MG PO Q6 Y for NAUSEA AND /OR VOMITING, #10 TAB Prov:ROSE MARYHADAMVITAAUSTIN S. 02/15/15 Hydrocodone Bit-Acetaminophen* ([place]*) 10-325 Mg Tablet, 1 TAB PO Q6 Y for PAIN , #7 TAB Prov:JOONDAMVITAAUSTIN S. 02/15/15 Ciprofloxacin Hcl* (Ciprofloxacin Hcl*) 500 Mg Tablet, 500 MG PO BID for 7 Days , TAB Prov:AUSTIN ANDERS S. 02/15/15 Follow-up Plan Martinez Martínez MD Specialty: General Surgery Office Address: [address] [place] [address] Office Follow-up in 1 week. Pending Labs Laboratory Tests Test 07/14/16 05:58 White Blood Count 8.510^3/ul (4.8-10.8) Red Blood Count 3.1310^6/ul (4.20-5.40) Hemoglobin 9.5g/dl (12.0-16.0) Hematocrit 29.0% (37.0-47.0) Mean Corpuscular Volume 92.7fl (82.0-101.0) Mean Corpuscular Hemoglobin 30.4pg (29.0-33.0) Mean Corpuscular Hemoglobin Concent 32.8g/dl (32.0-37.0) Red Cell Distribution Width 13.9% (11.5-14.5) Platelet Count 46186^3/UL (140-415) Mean Platelet Volume 10.4fl (7.4-10.4) Neutrophils % 77.1% (39.0-77.0) Lymphocytes % 14.7% (15.0-51.0) Monocytes % 7.4% (0.0-11.0) Eosinophils % 0.2% (0.0-7.0) Basophils % 0.1% (0.0-2.0) Nucleated Red Blood Cells % 0.0/100WBC (0.0-0.0) Neutrophils # 6.610^3/ul (1.6-7.5) Lymphocytes # 1.310^3/ul (0.8-2.9) Monocytes # 0.610^3/ul (0.3-0.9) Eosinophils # 0.010^3/ul (0.0-0.5) Basophils # 0.010^3/ul (0.0-0.1) Nucleated Red Blood Cells # 0.010^3/ul (0.0-0.0) Sodium Level 135mmol/L (135-144) Potassium Level 3.6mmol/L (3.5-5.1) Chloride Level 107mmol/L (97-110) Carbon Dioxide Level 23mmol/L (21-31) Anion Gap 9 (8-16) Blood Urea Nitrogen 3mg/dl (7-20) Creatinine 0.44mg/dl (0.44-1.00) Glucose Level 125mg/dl (70-220) Hemoglobin A1c 5.4% (0-5.9) Calcium Level 8.2mg/dl (8.4-10.2) Phosphorus Level 2.7mg/dl (2.5-4.9) Magnesium Level 1.7mg/dl (1.7-2.5) Total Bilirubin 0.4mg/dl (0.2-1.3) Direct Bilirubin 0.00mg/dl (0.00-0.20) Indirect Bilirubin 0.4mg/dl (0-1.1) Aspartate Amino Transf (AST/SGOT) 11IU/L (15-46) Alanine Aminotransferase (ALT/SGPT) 28IU/L (13-69) Alkaline Phosphatase 35IU/L (42-121) Total Protein 5.7g/dl (6.1-8.1) Albumin 3.1g/dl (3.3-4.9) Globulin 2.60g/dl (1.3-3.2) Albumin/Globulin Ratio 1.19 Triglycerides Level 39mg/dl (0-149) Cholesterol Level 123mg/dl (100-200) LDL Cholesterol, Calculated 68mg/dl HDL Cholesterol 47mg/dl (34-82) Cholesterol/HDL Ratio 2.6RATIO Thyroid Stimulating Hormone (TSH) 3.980MIU/L (0.465-4.680) Free Thyroxine 1.02ng/dl (0.79-2.35) PETRA OREILLY NP July 14, 2016 17:23
[2016-07-16] MEDS ORDERED: IBUPROFEN 600 MG TAB PO PRN (20:00)
== END 2016-07-14 19:00 | disposition home or self-care (01) | DRG 340 ==
LOC: FTE 04:29 → MS2 08:43
PROVIDERS: ADMIT Family Medicine; ATTEND Family Medicine
PROC: 0WQF4ZZ Repair Abdominal Wall, Percutaneous Endoscopic Approach (ICD-10-PCS; 2016-07-13)
PROC: 0DTJ4ZZ Resection of Appendix, Percutaneous Endoscopic Approach (ICD-10-PCS; principal; 2016-07-13 18:30)
DX: K35.3 Acute appendicitis with localized peritonitis (principal); K42.9 Umbilical hernia without obstruction or gangrene
CPT/HCPCS: 36415; 74176; 80053; 80061; 81001; 81003; 83036; 83690; 83735; 84100; 84439; 84443; 84703; 85025; 88302; 88304; 96374; 96375; 96376; J0690; J2175; J2250; J2270; J2405; J2543; J2710; J3010; J3480; J7030; J7042